=== PATIENT | female | born 1930 | race Two or more races ===

== ENCOUNTER 2017-06-14 07:02 | Day surgery (SDC) | payer MEDICAID, OTHER ==
[~2017-06-14] VITALS: Ht 162.6 cm; Wt 78.0 kg
[~2017-06-14 07:02] MED LIST: ALLO100T PO; ATOR10TA PO; HYDR25TA4 PO; LEVO-28 PO; LISI40TA PO; METF-370 PO; MIN25T PO
[2017-06-14] MEDS ORDERED: IODIXANOL 320MG/ML 100ML BTL IV ONE (07:27)
[2017-06-14] MEDS ORDERED: LIDOCAINE 2%HCL (LOCAL ANESTH.) INJ 20ML MDV ONE (07:27)
[2017-06-14] MEDS ORDERED: VERAPAMIL 2.5MG/ML INJ 2ML VIAL IV ONE (08:09)
[2017-06-14] MEDS ORDERED: hydrALAZINE HCL 20 MG/ML VL ONE (08:18)
== END 2017-06-14 11:35 | disposition home or self-care (01) ==
LOC: CATH 07:02
PROVIDERS: ATTEND Internal Medicine
DX: I20.0 Unstable angina (principal); I10 Essential (primary) hypertension; E11.9 Type 2 diabetes mellitus without complications; G45.9 Transient cerebral ischemic attack, unspecified; I21.3 ST elevation (STEMI) myocardial infarction of unspecified site; Z88.1 Allergy status to other antibiotic agents
CPT/HCPCS: 82962; 93458; C1760; C1769; C1894; J0360; J1644; J7030; Q9967; 99152; 99153